=== PATIENT | male | born 1960 | race Caucasian/White ===

== ENCOUNTER → 2017-05-09 | Outpatient (CLI) | payer OTHER ==
[2017-05-09 09:59] LABS: ESTIMATED AVERAGE GLUCOSE 80 mg/dl; HA1C FLAG Normal (Normal)
[2017-05-09 10:11] LABS: ALB/GLOB RATIO 1.4 (0.9-2); ALT/SGPT 21 U/L (12-78); AST/SGOT 16 U/L (15-37); BLOOD UREA NITROGEN 15 mg/dl (7-18); BUN/CREATININE RATIO 15.8 (10-20); CALCIUM 8.7 mg/dl (8.5-10.1); CARBON DIOXIDE 31 mmol/L (21-32); CHLORIDE 108 mmol/L (98-107); CHOLESTEROL 150 mg/dl (0-200); CHOLESTEROL/HDL RATIO 2.5; CREATININE 0.98 mg/dl (0.60-1.40); GLUCOSE 92 mg/dl (70-99); HDL CHOLESTEROL 61 mg/dl; LDL CHOLESTEROL CALCULATED 73 mg/dl; POTASSIUM 4.4 mmol/L (3.5-5.1); SODIUM 141 mmol/L (136-145); TRIGLYCERIDES 78 mg/dl (0-150); VERY LOW DENSITY LIPOPROT CALC 16 mg/dl
[2017-05-09 10:20] LABS: ALKALINE PHOSPHATASE 42 U/L (45-117); THYROID STIMULATING HORMONE 0.984 uIu/ml (0.300-4.500)
== END | disposition home or self-care (01) ==
LOC: C.LAB1850 08:05
PROVIDERS: ATTEND Internal Medicine Endocrinology, Diabetes & Metabolism
DX: E10.9 Type 1 diabetes mellitus without complications (principal); E78.5 Hyperlipidemia, unspecified

== ENCOUNTER → 2017-09-07 | Outpatient (CLI) | payer OTHER ==
[2017-09-07 11:15] LABS: ESTIMATED AVERAGE GLUCOSE 82 mg/dl; HA1C FLAG Normal (Normal)
== END | disposition home or self-care (01) ==
LOC: C.LABBC 07:41
PROVIDERS: ATTEND Internal Medicine Endocrinology, Diabetes & Metabolism
DX: E10.9 Type 1 diabetes mellitus without complications (principal); E78.5 Hyperlipidemia, unspecified

== ENCOUNTER → 2018-01-01 | Outpatient (CLI) | payer OTHER ==
[2018-01-01 10:44] LABS: BASO % 0.3 %; BASO ABS # 0.01 K/uL (0-0.2); EOS % 0.8 %; EOS ABS # 0.03 K/uL (0-0.5); HEMATOCRIT 40.3 % (42-52); HEMOGLOBIN 14.6 g/dL (14.0-18.0); IG# 0.01 K/uL (0.00-0.02); LYMPH % 33.7 %; LYMPH ABS # 1.34 K/uL (1.2-3.4); MEAN CELL VOLUME 95.3 fL (80-100); MEAN CORPUSCULAR HEMOGLOBIN 34.5 pg (25-34); MEAN CORPUSCULAR HGB CONC 36.2 g/dl (32-36); MEAN PLATELET VOLUME 10.1 fL (7.4-10.4); MONO % 11.1 %; MONO ABS # 0.44 K/uL (0.11-0.59); NEUT % 53.8 %; NEUT ABS # 2.15 K/uL (1.4-6.5); PLATELET COUNT 163 K/uL (130-400); RED CELL DISTRIBUTION WIDTH CV 14.3 % (11.5-14.5); RED CELL DISTRIBUTION WIDTH SD 49.5 fL (36.4-46.3); WHITE BLOOD COUNT 3.98 K/uL (4.8-10.8)
[2018-01-01 11:07] LABS: ALBUMIN 3.7 gm/dl (3.4-5.0); TOTAL PROTEIN 6.6 gm/dl (6.4-8.2)
[2018-01-01 11:34] LABS: HEMOGLOBIN A1C 4.3 % (4.5-5.6)
== END | disposition home or self-care (01) ==
LOC: C.LABBC 07:37
PROVIDERS: ATTEND Internal Medicine
DX: E78.5 Hyperlipidemia, unspecified (principal); E10.9 Type 1 diabetes mellitus without complications; D72.819 Decreased white blood cell count, unspecified